=== PATIENT | female | born 2000 | race African-American/Black ===

== ENCOUNTER 2025-07-06 01:50 | Emergency (ER) | payer MEDICAID ==
[~2025-07-06] VITALS: Ht 160 cm; Wt 82.0 kg
[2025-07-06 02:02] VITALS: TEMP 36.7
[2025-07-06] MEDS: METHYLPREDNISOLONE 40MG/ML INJ IV ONE (02:22)
[2025-07-06 02:28] VITALS: PULSE 91; RESP 16; O2SAT 99
[2025-07-06] MEDS: IPRATROPIUM/ALBUTEROL 0.5-3(2.5)MG/3ML NEB HHN ONE (02:28)
[2025-07-06] MEDS ORDERED: IPRATROPIUM/ALBUTEROL 0.5-3(2.5)MG/3ML NEB HHN NR (02:30)
[2025-07-06] MEDS: BUDESONIDE 0.5MG/2ML NEB HHN SCH (02:45)
[2025-07-06] MEDS: METHYLPREDNISOLONE SOD SUCC 125MG/2ML (ACT-O-VIAL) IM NR (03:03)
[2025-07-06] MEDS: DEXAMETHASONE 10 MG/ML VIAL PO ONE (03:03)
[2025-07-06 03:27] VITALS: BP 168/89; PULSE 102; RESP 16; O2SAT 99
[2025-07-06] MEDS ORDERED: ALBU18HF2 IH (03:35)
[2025-07-06] MEDS ORDERED: PRED5TAB48 MT (03:35)
== END 2025-07-06 03:46 | disposition home or self-care (01) ==
LOC: ER 02:02
DX: J45.901 Unspecified asthma with (acute) exacerbation (principal); Z79.52 Long term (current) use of systemic steroids; Z79.51 Long term (current) use of inhaled steroids
CPT/HCPCS: 71045; 94640; 99285; J1100; J2919; Z7610 ×3; 94070; J7626